=== PATIENT | female | born 1955 | race Caucasian/White ===

== ENCOUNTER → 2017-03-07 | Outpatient (CLI) | payer OTHER | LOC: BMCIMAGING 10:29 | PROVIDERS: ATTEND Family Medicine | DX: M25.422 Effusion, left elbow (principal); S59.902A Unspecified injury of left elbow, initial encounter; W01.0XXA Fall on same level from slipping, tripping and stumbling without subsequent striking against object, initial encounter; Y93.01 Activity, walking, marching and hiking ==